=== PATIENT | female | born 1985 | race Caucasian/White ===

== ENCOUNTER 2024-05-19 14:02 | Emergency (ER) | payer BC, SELFPAY ==
--- NOTE | ~2024-05-19 | CT_ITS ---
EXAMINATION: CT lumbar spine w con DATE: 05/19/2024 16:51 INDICATION: recent myelogram, LBP . TECHNIQUE: Computed tomography (CT) of the lumbar spine was performed with 100 mL Omnipaque 350 intra venous contrast. Automated exposure control and iterative reconstruction technique were employed. The dose-length product was 448.39 mGy-cm. COMPARISON: None. FINDINGS: 5 nonrib-bearing lumbar-type vertebral bodies. Mild scoliosis. Pedicles intact. Normal vert ebral body alignment. Vertebral body heights preserved. Mild multilevel degenerative disc disease. Mi ld lower lumbar facet arthropathy. No fracture or dislocation. 2.4 cm simple left ovarian cyst which requires no additional evaluation at this time. No abnormal enhancement. Subcutaneous gas in the righ t lower paraspinal musculature, likely related to reported history of recent myelogram. IMPRESSION: No acute fracture or traumatic malalignment in the lumbar spine. No severe central canal or neural fo raminal narrowing. No abnormal enhancing lesions detected in the spine. Right lower paraspinal muscle subcutaneous gas likely related to obstruction from recent myelogram, no associated fluid collection or abscess. Reviewed, dictated and finalized at location K. IMPRESSION: No acute fracture or traumatic malalignment in the lumbar spine. No severe cent ral canal or neural foraminal narrowing. No abnormal enhancing lesions detected in the spine. Right lower paraspinal muscle subcutaneous gas likely related to obstruction from recent myelogram, no associated fluid collection or abscess.
--- NOTE | ~2024-05-19 | CT_ITS ---
EXAMINATION: CT brain wo con DATE: 05/19/2024 16:50 INDICATION: HAs, recent CT myelogram . TECHNIQUE: Computed tomography (CT) of the head was performed without intravenous contrast. The mA wa s adjusted according to patient size. Iterative reconstruction technique was employed. The dose-lengt h product was 605.33 mGy-cm. COMPARISON: None. FINDINGS: No acute intracranial hemorrhage or extra-axial fluid collection. No hydrocephalus, mass, or herniation. No acute ischemic infarct. Unremarkable dural venous sinus attenuation. No acute osseous abnormality. The aerated spaces are clear. IMPRESSION: No acute intracranial process. Reviewed, dictated and finalized at location K.
[2024-05-19 14:38] VITALS: BP 111/81; PULSE 80; RESP 18; TEMP 36.5; O2SAT 100
--- NOTE | 2024-05-19 15:58 | ED.GENADULT ---
HPI - General Adult General Chief complaint: Unspecified <NORMAN Antoine Last Filed: 05/19/24 16:14> Stated complaint: epidural blood patch sunday. MCPHERSON, nausea, back pain <NORMAN Antoine Last Filed: 05/19/24 16:14> Time Seen by Provider: 05/19/24 15:58 <NORMAN Antoine Last Filed: 05/19/24 16:14> Focused HPI: Patient is a 38-year-old female who presents the ED with report of headaches and lower back pain. Patient reports she had a CT myelogram of her cervical spine on Sunday at [facility] in [place], [place]. They accessed her spinal cord from her lumbar region. She reports she developed headache, nausea, vomiting, severe lower back pain after the procedure. She was seen at [facility] and transferred to [facility] on Sunday and received a blood patch. States this initially improved her symptoms, however symptoms have returned yesterday and today. Had one of her home [place] this morning but denied improvement. Denies numbness, saddle anesthesia, bowel/bladder incontinence. Denies fevers. GENERAL: Well-appearing, well-nourished, and in no acute distress. HEAD: Normocephalic, atraumatic. CHEST: Clear to auscultation. ?No respiratory distress. HEART: Regular rate and rhythm.? MSK: TTP throughout midline lumbar region. Small puncture wound in midline spine w/o surrounding erythema, warmth, induration. Sensation intact. NEURO: ?Alert and oriented x3. Patient screened in triage and initial orders placed.? ?Additional care and disposition to be based upon?diagnostic testing and treatment. <NORMAN Antoine Last Filed: 05/19/24 16:14> Source: patient <NORMAN Antoine Last Filed: 05/19/24 16:14> Mode of arrival: ambulatory <NORMAN Antoine Last Filed: 05/19/24 16:14> Limitations: no limitations <NORMAN Antoine Last Filed: 05/19/24 16:14> History of Present Illness HPI narrative: This is a 38-year-old female presenting to the ED with recurrent headache. She had a recent CT myelogram with resulting headache requiring epidural blood patch on Sunday. Patient states she went home feeling much improved after the procedure but then yesterday was doing housework and knows that her headache had returned. Described low bit of nauseousness without vomiting. No vision changes, back pain, vomiting, abdominal pain, chest pain, shortness a breath. States her headache is not as severe as it was prior to the blood patch. <Frank Hawkins MD - Last Filed: 05/19/24 19:28> Related Data Allergies/adverse reactions: Allergies Allergy/AdvReac Type Severity Reaction Status Date / Time azithromycin [From Zithromax] Allergy Vomiting Verified 05/19/24 14:04 latex Allergy Hives Verified 05/19/24 14:04 morphine Allergy Anaphylaxis Verified 05/19/24 14:04 <Megan Del Toro PA-C - Last Filed: 05/19/24 16:14> Review of Systems Review of Systems: As reviewed above in HPI <Frank Hawkins MD - Last Filed: 05/19/24 19:28> Exam Narrative: GENERAL: [Well-appearing, well-nourished, and in no acute distress.] HEAD: [Normocephalic, atraumatic.] EYES: [PERRLA and EOMI.] ENT: Nares clear, no rhinorrhea or epistaxis. Mucous membranes moist. NECK: Supple. CHEST: [Clear to auscultation. No respiratory distress.] HEART: [Regular rate and rhythm]. No murmur heard. [Normal peripheral pulses.] ABDOMEN: [Soft, nondistended], [nontender], [No rigidity or guarding] EXTREMITIES: Normal range of motion. [No edema.] No overlying skin changes at the lumbar region, previous puncture site appears clean, dry, intact. Full range of motion. No CT or L-spine tenderness or step-off/deformities. SKIN: Warm, dry, no rash. NEURO: [No focal deficits]. Alert and oriented [x3.] No ataxia, awake and answers all questions appropriately. Strength and sensation intact bilaterally. PSYCH
[2024-05-19] MEDS: METOCLOPRAMIDE HCL INJ 10 MG/2 ML VIAL IV PUSH (16:17)
[2024-05-19] MEDS: diphenhydrAMINE HCl INJ 50 MG/ML VIAL 25 MG IV PUSH (16:17)
[2024-05-19] MEDS: HYDROcodone/acetaminophen (*CRX) 5-325 MG TABLET 1 TAB PO (16:18)
[2024-05-19 16:28] LABS: Basophils Percent Auto 0.3 % (0.2-1.2); Eosinophils Absolute Auto 0.1 K/mm3 (0-0.3); Eosinophils Percent Auto 0.8 % (0-4.4); Hematocrit 40.3 % (37.0-47.0); Hemoglobin 13.9 g/dL (12.0-15.0); Immature Granulocyte Absolute 0.01 K/mm3 (0.00-0.031); Immature Granulocyte Percent A 0.2 % (0-0.5); Lymphocytes Absolute Auto 1.24 K/mm3 (0.9-3.2); Lymphocytes Percent Auto 20.6 % (18.3-44.2); Mean Corpuscular HGB Conc 34.5 g/dl (32-36); Mean Corpuscular Hemoglobin 31.2 pg (26-34); Mean Corpuscular Volume 90.4 fl (80-100); Mean Platelet Volume 9.4 fl (7.4-10.4); Monocytes Absolute Auto 0.6 K/mm3 (0.1-0.6); Monocytes Percent Auto 9.8 % (2.6-8.5); Neutrophils Absolute Auto 4.1 K/mm3 (1.3-6.7); Neutrophils Percent Auto 68.3 % (45.5-73.1); Platelet Count Result 206 k/mm3 (150-375); Red Blood Count 4.46 M/mm3 (4.2-5.4); Red Cell Distribution Width 13.2 % (11.5-14.5)
[2024-05-19 16:41] LABS: Alanine Aminotransferase 12 U/L (6-35); Albumin Level 4.2 g/dL (3.5-5.1); Alkaline Phosphatase 48 U/L (38-126); Anion Gap 10 mmol/L (4-12); Aspartate Amino Transferase 18 U/L (14-36); Bilirubin,Total 0.7 mg/dL (0.2-1.3); Blood Urea Nitrogen 10 mg/dL (7-17); Calcium 9.1 mg/dL (8.4-10.2); Carbon Dioxide 29 mmol/L (22-30); Chloride 98 mmol/L (98-107); Estimated CRCL calculation 73 ml/min; Estimated Glomerular Filt Rate > 60; Glucose 83 mg/dL (65-110); Potassium 3.7 mmol/L (3.4-5.0); Sodium 137 mmol/L (137-145)
[2024-05-19] MEDS: SODIUM CHLORIDE 0.9% IV 1,000 ML 999 ML IV CONT (18:57)
[2024-05-19] MEDS: dexAMETHasone SOD PHOS INJ 10 MG/ML 1 ML VIAL IV PUSH (18:57)
[2024-05-19] MEDS: KETOROLAC 15 MG/ML VIAL (*BKC) IV PUSH (18:57)
[2024-05-19] MEDS: MAGNESIUM SULF 2 GM/WATER 50ML 2 GM/50 ML BAG IVPB (19:05)
== END 2024-05-19 21:10 | disposition home or self-care (01) ==
LOC: ANHED 19:12
PROVIDERS: Physician Assistant; Emergency Provider Student in an Organized Health Care Education/Training Program; PCP Registered Nurse
DX: G43.909 Migraine, unspecified, not intractable, without status migrainosus (principal); G97.1 Other reaction to spinal and lumbar puncture
CPT/HCPCS: 36415; 70450; 72132; 80053; 83605; 85025; 96361; 96365; 96366; 96375; 99284; A9270; J1100; J1200; J1885; J2765; J3475; J7030; Q9967